=== PATIENT | female | born 1990 | race Caucasian/White ===

== ENCOUNTER 2017-10-18 12:28 | Observation (INO) | payer BC ==
--- NOTE | 2017-10-18 16:16 | SOAPPROG ---
SOAP Progress Note Assessment/Plan: Assessment: 27 y/o with IUP at 41.0 Cat 1 EFM no evidence of SROM/labor BPP 04/10 Plan: D/C home at this time FU at center 10/22/2017 Labor/SROM/FKC precautions reviewed 10/18/17 19:40 Subjective: Patient doing well. Denies contractions, LOF , VB. Reports + FM. Patient was seen at [facility] today for BPP that was 04/10 but heart rate was noted to be 170s. At that time patient was sent to Labor and delivery for extended monitoring. Patient denies any fever or chills or caffeine consumption. - Time Spent With Patient Time Spent With Patient: Today's visit was approximately 2 hr, of which approximately 60 min was spent on direct [id number] counseling and coordination of care. - Pending Discharge Pending Discharge Within 24 Hours: Yes Pending Discharge Date: 10/19/17 Pending Discharge Time: 11:00 Physical Exam - Physical Exam General Appearance: alert, no apparent distress EENT: PERRL/EOMI Neck: supple Abdomen: non-tender, soft Pelvic Exam: other (FT/thick/high) Rectal: deferred Skin: normal color, warm/dry Neuro/Psych: alert, normal mood/affect, oriented x 3 ICD10 Worksheet Patient Problems: Problems Problem Status Onset heart rate reactive Acute Post-dates Acute - ICD10 Problem Qualifiers (1) heart rate reactive (2) Post-dates
== END 2017-10-18 16:20 | disposition home or self-care (01) ==
LOC: FLD 12:28
PROVIDERS: ADMIT Advanced Practice Midwife; ATTEND Advanced Practice Midwife
DX: O48.0 Post-term pregnancy (principal); Z3A.41 41 weeks gestation of pregnancy
CPT/HCPCS: 59025; G0378

== ENCOUNTER → 2017-10-18 | Outpatient (CLI) | payer BC | LOC: FIMAGING 11:38 | PROVIDERS: ATTEND Advanced Practice Midwife | DX: O48.0 Post-term pregnancy (principal); O36.8930 Maternal care for other specified fetal problems, third trimester, not applicable or unspecified; Z3A.40 40 weeks gestation of pregnancy ==